=== PATIENT | male | born 1990 | race African-American/Black ===

== ENCOUNTER 2017-09-03 10:01 | Emergency (ER) | payer OTHER ==
[2017-09-03] MEDS ORDERED: CEFTRIAXONE INJ 250 MG VIAL IM ONE (11:04)
[2017-09-03] MEDS ORDERED: AZITHROMYCIN 250 MG TABLET PO ONE (11:04)
[2017-09-03] MEDS ORDERED: LIDOCAINE 1% INJ-PF (10 MG/ML) 30 ML SDV INJ ONE (11:04)
--- NOTE | 2017-09-03 11:09 | ER Document Report ---
HPI - HPI Pain Level: 2 Notes: Patient is a 27-year-old male who presents the ED complaining of clear urinary discharge, exposure to chlamydia 2-3 days. Patient states that he did vomit twice yesterday, but is not concerned about that. He just did not want to tell the triage nurse when he was coming here for. Patient states that otherwise he has been healthy. He denies any drug allergies or other significant past medical history. No other concerns or complaints at this time. He has not noticed any testicular pain, penile pain, or lumps in his groin. He is eating and drinking without any difficulties. He is otherwise urinating normally and having normal bowel movements. Denies any headache, fever, neck pain, URI, sore throat, chest pain, palpitations, syncope, cough, shortness of breath, wheeze, dyspnea, abdominal pain, nausea/vomiting/diarrhea, urinary retention, hematuria, loss of control of bowel or bladder, numbness/tingling, muscle paralysis/weakness, or rash. - ROS Systems Reviewed and Negative: Yes All other systems reviewed and negative Past Medical History - Social History Smoking Status: Unknown if Ever Smoked Family History: Reviewed & Not Pertinent Vertical Provider Document - CONSTITUTIONAL Agree With Documented VS: Yes Notes: PHYSICAL EXAMINATION: GENERAL: Well-appearing, well-nourished and in no acute distress. A&Ox4. HEAD: Atraumatic, normocephalic. EYES: Pupils equal round and reactive to light, extraocular movements intact, sclera anicteric, conjunctiva are normal. ENT: Nares patent and without discharge. oropharynx clear without exudates. No tonsilar hypertrophy or erythema. Moist mucous membranes. NECK: Normal range of motion, supple without lymphadenopathy LUNGS: Breath sounds clear to auscultation bilaterally and equal. No wheezes rales or rhonchi. HEART: Regular rate and rhythm without murmurs, rubs, gallops. ABDOMEN: Soft, nontender, nondistended abdomen. No guarding, no rebound. No masses appreciated. Normal bowel sounds present. No CVA tenderness bilaterally. : circumsized. no inguinal adenopathy. + clear/cloudy discharge noted. Non- tender to palp of the penis/testicles/epidyd. Extremities: No cyanosis, clubbing, or edema b/l. Peripheral pulses 2+. Capillary refill less than 3 seconds. NEUROLOGICAL: Normal speech, normal gait. Normal sensory, motor exams PSYCH: Normal mood, normal affect. SKIN: Warm, Dry, normal turgor, no rashes or lesions noted. - INFECTION CONTROL TRAVEL OUTSIDE OF THE [place] IN LAST 30 DAYS: No - RESPIRATORY O2 Sat by Pulse Oximetry: 99 Course - Re-evaluation Re-evalutation: 09/03/17 11:07 Patient is an afebrile, well-hydrated, 27-year-old male who presents the ED with an exposure to chlamydia and urethral discharge. Vitals are stable. PE is otherwise unremarkable. Chlamydia/gonorrhea test is pending. Patient was given Rocephin and Zithromax. Low suspicion/risk for acute appendicitis, bowel obstruction, acute cholecystitis, perforated diverticulitis, incarcerated hernia , pancreatitis, perforated ulcer, peritonitis, sepsis, testicular torsion, or other systemic emergent condition at this time. Patient is aware that his condition can change from initial presentation and he needs to monitor symptoms closely and seek medical attention if any acute changes. Conservative measures otherwise for symptoms. Recheck with PCM in 3-5 days. Patient is to follow-up with the health department for further evaluation and testing. Return to the ED with any worsening/concerning symptoms otherwise as reviewed in discharge. Patient is in agreement. - Vital Signs Vital signs: Temp Pulse Resp BP Pulse Ox 98.4 F 67 16 135/83 H 99 09/03/17 10:06 09/03/17 10:06 09/03/17 10:06 09/03/17 10:06 09/03/17 10:06 Discharge - Discharge Clinical Impression: Exposure to chlamydia Condition: Stable Disposition: HOME, SELF-CARE Instructions: Chlamydia ([facility], 1928–1983), [facility] Additional Instructions: Push fluids (i.e. water, cranberry juice) Proper hygenic technique Keep the skin clean Safe sexual practices with condoms everytime Tylenol/ibuprofen as needed May use over the counter AZO for burning with urination Check in with the health department this week for further testing* Your chlamydia/Ghon test are pending and you will be notified if positive results; you may call in 2 days for the results as well Return immediately if symptoms worsen F/u with your PCM in 3-5 days for a recheck Consider consult with a Urologist for ongoing/worsening symptoms. Return to the ED with any development of HALL/fever, trouble with vision, eye redness, worsening pain, urethral discharge, urinary retention, blood in the urine, flank pain, abdominal pain, n/v, Chest Pain, shortness of breath, joint pains, trouble breathing, or any other worsening/concerning symptoms as needed otherwise. Forms: Elevated Blood Pressure Referrals: HEALTH DEPT,[facility] [NO LOCAL MD] - Follow up in 3-5 days
[2017-09-03 12:05] VITALS: BP 126/92
[2017-09-03 12:53] LABS: CHLAM PCR DETECTED (NOT DETECT); GON PCR NOT DETECTED (NOT DETECT)
== END 2017-09-03 12:06 | disposition home or self-care (01) ==
LOC: ER 10:01
DX: Z20.2 Contact with and (suspected) exposure to infections with a predominantly sexual mode of transmission (principal); R36.9 Urethral discharge, unspecified
CPT/HCPCS: 99283; 96372; 87491; 87591; J3490; J0696